=== PATIENT | male | born 1950 | race Caucasian/White ===

== ENCOUNTER 2025-04-01 14:44 | Outpatient (CLI) | payer MEDICARE ==
--- NOTE | 2025-04-01 16:01 | RADIOLOGY REPORT ---
CLINICAL INFORMATION: 74 years old, Male; BACK PAIN. TECHNIQUE: 3 views of the lumbar spine were obtained. COMPARISON: None FINDINGS: There are 6 [id number] lumbar type vertebrae with transitional vertebra at the lumbosa cral junction which will be designated a lumbarized S1 for the purposes of numbering on this exam. Mi nimal retrolisthesis of L2 on L3 and L3 on L4. Vertebral body heights are maintained. Posterior eleme nts are intact. No acute fracture. Multilevel moderate disc space narrowing in the lumbar spine with associated endplate sclerosis and endplate spurring. Multilevel [id number] facet hypertrophy. P araspinal soft tissues are grossly unremarkable. Moderate atherosclerotic calcification of the abdomi nal aorta and common iliac arteries incidentally noted. IMPRESSION: 1. Transitional anatomy as described above. For the purposes of numbering on this exam, the transitio nal vertebra at the lumbosacral junction is designated a lumbarized S1. This may differ from the numb ering convention used on outside imaging. 2. Degenerative disc disease and facet disease in the lumbar spine as described above. 3. Minimal retrolisthesis of L2 on L3 and L3 on L4.
--- NOTE | 2025-04-01 16:08 | RADIOLOGY REPORT ---
INDICATION: BACK PAIN TECHNIQUE: AP, lateral, and swimmer's views of the thoracic spine were performed. COMPARISON: None FINDINGS: No fracture, scoliosis, or listhesis of the thoracic spine. There is moderate thoracic dege nerative disc disease, with multiple bridging syndesmophytes present. There is moderate to severe low er cervical degenerative disc disease. IMPRESSION: 1. No fracture of the thoracic spine. 2. 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 Correlate for possible ankylosing spondylitis .
== END 2025-04-01 23:59 | disposition home or self-care (01) ==
LOC: RAD 14:44
PROVIDERS: ATTEND Internal Medicine
DX: M47.814 Spondylosis without myelopathy or radiculopathy, thoracic region (principal); M54.9 Dorsalgia, unspecified; M45.4 Ankylosing spondylitis of thoracic region; M51.369 Other intervertebral disc degeneration, lumbar region without mention of lumbar back pain or lower extremity pain; M47.816 Spondylosis without myelopathy or radiculopathy, lumbar region
CPT/HCPCS: 72070; 72100

== ENCOUNTER 2025-04-26 07:46 | Outpatient (CLI) | payer MEDICARE ==
--- NOTE | 2025-04-26 12:08 | RADIOLOGY REPORT ---
EXAM: MR MRI THORACIC SPINE CLINICAL HISTORY: VERTEBROGENIC LOW BACK PAIN COMPARISON: DI THORACIC SPINE LITD on DOS: 04/01/25 TECHNIQUE: MRI imaging of the thoracic spine was performed on a MR imaging system without intravenous contrast. FINDINGS: Adequate Study Quality Alignment: Mild kyphosis Vertebrae: Normal. Vertebral Marrow: Normal. Epidural Space: Normal. Spinal Cord: Normal. Discs: Normal. Spinal canal: No significant narrowing of the central canal and neural foramina by bony or soft tissue pathology Other None. IMPRESSION: 1. Degenerative changes in the intervertebral discs with mild kyphosis. 2. There is no evidence of bony pathology 3. There is no evidence of cord or nerve root compression or myelopathy
--- NOTE | 2025-04-26 12:10 | RADIOLOGY REPORT ---
MRI lumbar spine HISTORY: VERTEBROGENIC LOW BACK PAIN TECHNIQUE: MR was performed with a surface coil at 1.5 T magnet. Sagittal, axial and coronal T1 and T2-weighted images were obtained. FINDINGS: Mild dextroscoliosis Lumbar vertebrae are normal in height. There is a Schmorl's node along the superior L2 vertebral body endplate L1-2 loss of disc height and signal intensity. No narrowing of the central canal and neural foramina L2-3 loss of disc height and signal intensity. No narrowing of the central canal and neural foramina L3-4 loss of disc height and signal intensity. No narrowing of the central canal and neural foramina L4-5 loss of disc height and signal intensity. Slight narrowing of the right neural foramen bilaterally bulging disc L5-S1 loss of disc height and signal intensity. Slight narrowing of the neural foramina bilaterally bulging disc and osteophytes Cord ends at T12-L1 is normal in appearance IMPRESSION: 1. Degenerative disc disease. No evidence of disc herniation or nerve root compression
== END 2025-04-26 23:59 | disposition home or self-care (01) ==
LOC: MRI 07:46
PROVIDERS: ATTEND Internal Medicine
DX: M51.379 Other intervertebral disc degeneration, lumbosacral region without mention of lumbar back pain or lower extremity pain (principal); M54.51 Vertebrogenic low back pain; M48.07 Spinal stenosis, lumbosacral region
CPT/HCPCS: 72146; 72148

== ENCOUNTER 2025-06-22 09:34 | Outpatient (CLI) | payer MEDICARE ==
--- NOTE | 2025-06-22 10:16 | RADIOLOGY REPORT ---
CLINICAL INDICATION: PERSISTENT PAIN LEFT L/S REGION TECHNIQUE: Noncontrast CT of the pelvis was performed. Sagittal and coronal reformatted images are provided. COMPARISON: None CT Dose: CTDI volume is 35.1 mGy. Dose-length product is 1600.95 mGy*cm FINDINGS: Bones and joints: No acute fracture or dislocation. There is severe right hip joint space narrowing with osteophyte formation on both sides of the right hip joint. There is a left hip replacement, the components of which appear to be well aligned and well seated. No periprosthetic fracture. No circumferential lucency surrounding the hardware. There are degenerative changes in the lumbar spine. Disc degeneration present at L5-S1 with bilateral neural foraminal stenosis present at L4-L5 and L5-S1. Soft tissues: No significant joint effusion. No significant muscle atrophy. No soft tissue mass or obvious fluid collection. Arterial calcifications are present throughout the abdominal aorta and its branches. No lymphadenopathy. IMPRESSION: 1. No acute fracture or dislocation. 2. Severe right hip osteoarthritis. 3. Degenerative changes in the lumbar spine. All CT scans at this medical facility are performed using dose modulation techniques as appropriate to a performed exam including the following: Automated exposure control was utilized; adjustment of the MA and/or KV according to patient size; and use of iterative reconstruction technique.
== END 2025-06-22 23:59 | disposition home or self-care (01) ==
LOC: RAD 09:34
PROVIDERS: ATTEND Anesthesiology
DX: M47.816 Spondylosis without myelopathy or radiculopathy, lumbar region (principal); M47.9 Spondylosis, unspecified; M46.1 Sacroiliitis, not elsewhere classified; M46.08 Spinal enthesopathy, sacral and sacrococcygeal region; M16.11 Unilateral primary osteoarthritis, right hip; I70.0 Atherosclerosis of aorta
CPT/HCPCS: 72192